=== PATIENT | male | born 1965 | race Caucasian/White ===

== ENCOUNTER 2017-08-25 05:34 | Inpatient (IN) | payer BC ==
[~2017-08-25] VITALS: Ht 177.8 cm; Wt 133.8 kg
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
[2017-08-25 06:00] VITALS: BP 129/83
[2017-08-25 06:14] VITALS: BP 129/83
--- NOTE | 2017-08-25 07:15 | NUR ---
PATIENT PICKED UP FOR SURGERY IN GOOD AND STABLE CONDITION.
[2017-08-25] MEDS ORDERED: FENTANYL PF 100MCG/2ML AMPUL ONE (07:19)
[2017-08-25] MEDS ORDERED: MIDAZOLAM HCL 2 MG/2ML VIAL ONE (07:19)
[2017-08-25] MEDS ORDERED: BACITRACIN 50000 UNITS/VIAL ONE (07:45)
[2017-08-25] MEDS ORDERED: BUPIVACAINE 0.25% 75 MG/30 ML VIAL ONE (07:45)
[2017-08-25] MEDS ORDERED: HYDROMORPHONE 1 MG/1 ML DISP.SYRIN ONE (08:43)
--- NOTE | 2017-08-25 09:15 | NUR ---
MS/RN Back to room Patient back in room following ORIF of left radius fracture. Vital signs upon return within normal range, no fever. Pain level 4/10 at this time. Call l ight within reach, will continue to monitor and ensure safety.
[2017-08-25] MEDS ORDERED: TRAZ-144 PO (09:27)
[2017-08-25] MEDS ORDERED: QUET100T PO (09:27)
[2017-08-25] MEDS ORDERED: ALPR1TAB PO (09:27)
[2017-08-25] MEDS ORDERED: OLME40TA3 PO (09:27)
[2017-08-25] MEDS ORDERED: TIZA4TAB4 PO (09:27)
[2017-08-25] MEDS ORDERED: VILA40TA PO (09:27)
[2017-08-25] MEDS ORDERED: DYMISTA BNOSTRILS (09:27)
[2017-08-25] MEDS ORDERED: QUET25TA PO (09:27)
[2017-08-25] MEDS ORDERED: NEBI10TA2 PO (09:27)
[2017-08-25] MEDS ORDERED: AMLO10TA2 PO (09:27)
[2017-08-25] MEDS ORDERED: ESZO3TAB10 PO (09:27)
[2017-08-25] MEDS ORDERED: OXYC-34 PO (09:27)
[2017-08-25 09:54] VITALS: BP 150/90
--- NOTE | 2017-08-25 10:16 | NUR ---
MS/RN S/B Dr Calderon Seen by Dr Calderon - may discharge later today if stable.
[2017-08-25] MEDS ORDERED: QUETIAPINE FUMARATE 25 MG TABLET PO PRN (10:30)
[2017-08-25] MEDS ORDERED: oxyCODONE/APAP (5/325 MG) 1 UDTAB TABLET PO PRN ×2 (11:00)
[2017-08-25] MEDS ORDERED: Vilazodone Hydrochloride (Viibryd) 40 MG PO SCH (11:00)
--- NOTE | 2017-08-25 12:00 | NUR ---
MS/RN S/B Dr Calderon Seen by Dr Calderon - may be discharged today, needs to follow up with Dr Douglas in 10-14 days. Prescription wrote and copy placed in chart, exit care prepared. Medical record signed.
--- NOTE | 2017-08-25 14:02 | NUR ---
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 Heplock and name bands removed. Education provided to patient regarding the importance of keeping arm in sling and reporting to MD if noticing any swelling in fingers, numbness or tingling. All paperwork signed, copies made and placed in chart. Copy of medical record provided to patient. All personal belongings accounted for and signed of on belongings list. Escorted to main door by RN.
[2017-08-25] MEDS ORDERED: TRAZODONE 50 MG TABLET PO SCH (22:00)
[2017-08-25] MEDS ORDERED: QUETIAPINE FUMARATE 100 MG TABLET PO SCH (22:00)
[2017-08-26] MEDS ORDERED: TIZANIDINE HCL 4 MG TABLET PO SCH (09:00)
[2017-08-26] MEDS ORDERED: AMLODIPINE BESYLATE 10 MG TABLET PO SCH (09:00)
== END 2017-08-25 14:00 | disposition home or self-care (01) | DRG 512 ==
LOC: DS 05:34 → MEDSG2 05:35
PROVIDERS: ADMIT Specialist; ATTEND Specialist
DX: S52.502A Unspecified fracture of the lower end of left radius, initial encounter for closed fracture (principal); E66.9 Obesity, unspecified; Y92.9 Unspecified place or not applicable; X58.XXXA Exposure to other specified factors, initial encounter; E78.5 Hyperlipidemia, unspecified; F43.10 Post-traumatic stress disorder, unspecified; I10 Essential (primary) hypertension; F32.9 Major depressive disorder, single episode, unspecified; F41.9 Anxiety disorder, unspecified
CPT/HCPCS: 71010-TC; 87081-TC; A4565; A4606; A6253; A6402; J0461; J1100; J1170; J1885; J2250; J2405; J2704; J3010; J3490; Z7610